=== PATIENT | female | born 1955 | race American Indian/Alaskan Native ===

== ENCOUNTER 2019-02-03 12:50 | Emergency (ER) | payer MEDICAID ==
[2019-02-04 07:46] VITALS: BP 118/65
[2019-02-04] MEDS ORDERED: HALDOL IM ONE (11:25)
[2019-02-04] MEDS ORDERED: HALDOL ONE (11:25)
[2019-02-04] MEDS ORDERED: ATIVAN IM ONE (11:25)
[2019-02-04] MEDS ORDERED: ATIVAN ONE (11:26)
== END 2019-02-04 11:47 ==
LOC: ED 21:24
DX: R41.82 Altered mental status, unspecified (principal); Z53.21 Procedure and treatment not carried out due to patient leaving prior to being seen by health care provider
CPT/HCPCS: 36415; 70450; 80048; 80164; 80178; 80307; 81001; 82550; 84439; 84443; 85025; 93005; 93010; G0480; J1630; J2060; 80320

== ENCOUNTER 2019-02-04 11:25 | Inpatient (IN) | payer MEDICAID ==
[2019-02-04] MEDS ORDERED: TYLENOL PO PRN (13:40)
--- NOTE | 2019-02-04 20:30 | History and Physical Report ---
History of Present Illness Date of admission: 02/04/19 12:20 Chief complaint: Psychosis History of present illness: 63 YO Female with no PMH admitted to [facility] service for psychosis. Pt seen and evaluated upon arrival. Pt resting comfortable in bed. Pt is uncooperative with exam and interview. No reported nursing events. Pt medically stable. No reports of fever, chills, CP, Palpitations, NVD, Productive cough, trauma, or recent known ill contacts. Past History Past Medical History: No medical history, other (uto) Past Surgical History: No surgical history (uto) Social history: no significant social history, other (uto) Family history: no significant family history (uto) Medications and Allergies Allergies Allergy/AdvReac Type Severity Reaction Status Date / Time No Known Allergies Allergy Unverified 02/04/19 19:44 Home Medications Medication Instructions Recorded Confirmed Last Taken Type Unobtainable 02/03/19 02/03/19 Unknown History Active Meds: Active Medications Acetaminophen (Tylenol) 650 mg PO Q6H PRN PRN Reason: Pain, Mild (1-3) Nicotine (Habitrol) 21 mg TD QDAY SRIDEVI Trazodone HCl (Desyrel) 50 mg PO QHS PRN PRN Reason: Insomnia Review of Systems ROS unobtainable: due to mental status Exam - Constitutional Vitals: Temp Pulse Resp BP Pulse Ox 98.4 F 84 16 101/66 99 02/04/19 13:07 02/04/19 13:07 02/04/19 13:07 02/04/19 13:07 02/04/19 13:07 General appearance: Present: no acute distress, well-nourished - EENT Eyes: Present: PERRL ENT: hearing intact, clear oral mucosa - Neck Neck: Present: supple, normal ROM - Respiratory Respiratory effort: normal Respiratory: bilateral: CTA - Cardiovascular Heart Sounds: Present: S1 & S2. Absent: rub, click - Extremities Extremities: pulses symmetrical, No edema Peripheral Pulses: within normal limits - Abdominal General gastrointestinal: Present: soft, non-tender, non-distended, normal bowel sounds Female genitourinary: Present: normal - Integumentary Integumentary: Present: clear, warm, dry - Musculoskeletal Musculoskeletal: gait normal, strength equal bilaterally - Psychiatric Psychiatric: appropriate mood/affect, intact judgment & insight - Neurologic Neurologic: CNII-XII intact, moves all extremities Assessment and Plan - Patient Problems (1) Psychosis Current Visit: Yes Status: Acute Plan to address problem: Treatment as per primary team.
--- NOTE | 2019-02-05 08:11 | History and Physical Report ---
GP History & Physical - History of Present Illness Date of admission: 02/04/19 Date of Examination: 02/05/19 Reason for Admission: Danger to others, Unable to care for self Chief Complaint: someone said I was fighting in my half-way but I didn't do anything History of Present Illness: The patient is a 63yo disabled -Danish female with history of Schizophrenia/Schizoaffective disorder who resides at a snf from where she was transferred to the [facility] Emergency Room with reported history of being physically aggressive towards others at the [facility]. In my interview with the patient, she denies being aggressive but patient is very disorganized, loud, talkative but difficult to understand. History is limited. Patient appears to be developmentally delayed. She endorses being paranoid. She wants to stay in the hospital because she fears that there are people outside that want to hurt and kill her. She denies suicidal or homicidal thoughts. She denies hallucinations. She reports sleeping and eating well. Her home medications include Depakote and Haldol. Patient denies side effects to her medications. Legal Status: Voluntary Patient Problems: Current Active Problems Psychosis (Acute) Schizoaffective disorder, bipolar type (Acute) Reaction to Hospitalization: Accepting Substance History - Substance History Drug Use: none Hx Tobacco Use: Yes Tobacco Type: Cigarettes Alcohol Use: No Past psychiatric history - past Psychiatric treatment and history Psych: Psychosis, Schizophrenia psychiatric treatment history: Unknown - Social History Social history: , smoking, full code, other (disabled, lives in a [facility]) Review of Systems All systems: negative Psychiatric: paranoia Results - Results Labs/Vitals: Last Vital Signs Temp 98.2 F 02/05/19 06:45 Pulse 78 02/05/19 06:45 Resp 18 02/05/19 06:45 BP 137/65 02/05/19 06:45 Pulse Ox 97 02/05/19 06:45 Physical Examination - Constitutional Vitals: Vital Signs Temp Pulse Resp BP Pulse Ox 98.2 F 78 18 137/65 97 02/05/19 06:45 02/05/19 06:45 02/05/19 06:45 02/05/19 06:45 02/05/19 06:45 Temperature -Last 24 Hours Temperature 98.2 F Temperature 98.4 F General appearance: Present: no acute distress, disheveled - EENT ENT: hearing intact - Extremities Extremities: No edema, normal color Mental Status Exam - Vital signs Last Vital Signs Temp 98.2 F 02/05/19 06:45 Pulse 78 02/05/19 06:45 Resp 18 02/05/19 06:45 BP 137/65 02/05/19 06:45 Pulse Ox 97 02/05/19 06:45 - Exam Orientation: place, person Affect: anxious Mood: anxious Thought content: delusions, paranoia Thought Process: Disorganized Perceptions: none Speech: other (loud, rapid and difficult to understand) Concentration: distractible Motor activity: restless Level of consciousness: alert Memory: Intact Sleep Symptoms: None Interaction: cooperative Assessment and Plan - Psychiatric problem (1) Schizoaffective disorder, bipolar type Current Visit: Yes Status: Acute plan to address problem: PLAN: Patient will be admitted for inpatient psychiatric evaluation, medication adjustment and close monitoring The patient's behavior, mood, sleep and appetite will be closely monitored. Patient will be enrolled in therapeutic sessions and encouraged to attend. Patient will be provided with a safe and structured environment. Patient's physical health needs will be addressed by the Hospitalist. Social Assessment will be completed and the Mechanical Design Engineer Facilities will work with patient and family to ensure a suitable and safe disposition Medication adjustment will be made as clinically indicated. Will re-start Home medications. The patient agreed on the treatment plan, understood the risk, benefit, alternative treatment, potential consequence of no treatment, and gave informed consent. Physician Certification - Certification Statement Physician Certification Statement: This is an acknowledgement statement that DAKOTA NOYOLA is a 63 year old F who requires inpatient psychiatric admission for treatment which could reasonably be expected to improve the patient's condition for Schizoaffective disorder Estimated period of time patient will need to remain in the hospital:7 days Plan for post-hospital care: Out-patient treatment.
[2019-02-05] MEDS: HABITROL TD SCH (10:23)
[2019-02-05] MEDS ORDERED: HALDOL ONE (19:52)
[2019-02-05] MEDS ORDERED: COGENTIN ONE (19:52)
[2019-02-05] MEDS ORDERED: HALDOL PO SCH (22:00)
[2019-02-05] MEDS: DepaKENE Liq PO SCH (22:03)
[2019-02-05] MEDS: COGENTIN PO SCH (22:03)
[2019-02-05] MEDS: DESYREL PO PRN (22:04)
[2019-02-06] MEDS ORDERED: HALDOL IM PRN (02:32)
[2019-02-06] MEDS ORDERED: ATIVAN IM PRN (02:33)
--- NOTE | 2019-02-06 07:55 | Progress Note ---
Subjective Date of service: 02/06/19 Principal diagnosis: Schizoaffective disorder, Bipolar type Subjective Comment: The patient did not sleep well last night, she is very agitated, loud and disruptive. She was prescribed PRN medications (Haldol and Lorazepam IM) but she calmed down without requiring the medications, hence they were not give. This morning, she is pacing the floor, banging on doors, loud, agitated and disruptive. She accepted 5mg Haldol and Lorazepam 2mg per oral and she is having her breakfast at present time. Objective - Criteria for Continued Treatment Criteria for Continued Treatment: Improving Level of Functioning, Understanding Diagnosis and need for Medication, Improving Treatment / Medication Compliance, Confronting Denial of Illness, Stablizing Level of Functioning, Improving Emotional/Socia - Mental Status Mental Status: Oriented x 3 - Objective Observation Participation Level: Minimal Assessment and Plan - Patient Problems (1) Schizoaffective disorder, bipolar type Current Visit: Yes Status: Acute Plan to address problem: Continue inpatient psychiatric treatment for medication adjustment and close monitoring The patient's behavior, mood, sleep and appetite will be closely monitored. Patient will be enrolled in individual and group therapeutic sessions and encouraged to attend. Patient will be provided with a safe and structured environment. Patient's physical health needs will be addressed by the Hospitalist. Social Assessment will be completed and the Tool Grinder Operator will work with patient and family to ensure a suitable and safe disposition Medication adjustment will be made as clinically indicated. Will increase Haldol to 5mg bid The patient agreed on the treatment plan, understood the risk, benefit, alternative treatment, potential consequence of no treatment, and gave informed consent.
[2019-02-06] MEDS ORDERED: ATIVAN PO ONE (08:00)
[2019-02-06] MEDS ORDERED: HALDOL PO ONE (08:00)
[2019-02-06] MEDS: HALDOL PO SCH ×2 (09:57→21:16)
[2019-02-06] MEDS: HABITROL TD SCH (10:06)
[2019-02-06] MEDS: DepaKENE Liq PO SCH ×3 (10:06→19:45)
[2019-02-06] MEDS: COGENTIN PO SCH ×2 (10:07→21:17)
[2019-02-06] MEDS: DESYREL PO PRN (21:18)
[2019-02-07] MEDS: DepaKENE Liq PO SCH ×3 (08:19→20:00)
[2019-02-07] MEDS: HABITROL TD SCH (09:52)
[2019-02-07] MEDS: COGENTIN PO SCH ×2 (09:52→21:13)
[2019-02-07] MEDS: HALDOL PO SCH ×2 (09:52→21:13)
--- NOTE | 2019-02-07 10:03 | Progress Note ---
Subjective Date of service: 02/07/19 Principal diagnosis: Schizoaffective disorder, Bipolar type Subjective Comment: The patient continues to be loud, agitated and disruptive. She accepted her medications this morning. No reported or observed medications side effect She is disorganized. Denies SI/HI. Objective - Criteria for Continued Treatment Criteria for Continued Treatment: Improving Level of Functioning, Reducing Isolative Behaviors, Understanding Diagnosis and need for Medication, Improving Treatment / Medication Compliance, Confronting Denial of Illness, Stablizing Level of Functioning, Improving Emotional/Socia - Mental Status Mental Status: Oriented x 3 - Objective Observation Participation Level: Minimal Assessment and Plan - Patient Problems (1) Schizoaffective disorder, bipolar type Current Visit: Yes Status: Acute Plan to address problem: Continue inpatient psychiatric treatment for medication adjustment and close monitoring The patient's behavior, mood, sleep and appetite will be closely monitored. Patient will be enrolled in individual and group therapeutic sessions and encouraged to attend. Patient will be provided with a safe and structured environment. Patient's physical health needs will be addressed by the Hospitalist. Social Assessment will be completed and the Farm Management Professor will work with patient and family to ensure a suitable and safe disposition Medication adjustment will be made as clinically indicated. Will continue current meds The patient agreed on the treatment plan, understood the risk, benefit, alternative treatment, potential consequence of no treatment, and gave informed consent.
[2019-02-07] MEDS ORDERED: HALDOL PO PRN (10:17)
[2019-02-07] MEDS: ATIVAN PO PRN (19:37)
[2019-02-08] MEDS: DepaKENE Liq PO SCH ×3 (08:31→20:04)
[2019-02-08] MEDS: HALDOL PO SCH ×2 (09:16→21:26)
[2019-02-08] MEDS: COGENTIN PO SCH ×2 (09:16→21:26)
[2019-02-08] MEDS: HABITROL TD SCH (09:16)
--- NOTE | 2019-02-08 09:41 | Progress Note ---
Subjective Date of service: 02/08/19 Principal diagnosis: Schizoaffective disorder, Bipolar type Subjective Comment: The patient is hyperactive, loud, agitated and disruptive. She is disorganized and unable to care for self. She is accepted her medications this morning. No reported or observed medications side effect She denies SI/HI Objective - Criteria for Continued Treatment Criteria for Continued Treatment: Improving Level of Functioning, Reducing Isolative Behaviors, Understanding Diagnosis and need for Medication, Improving Treatment / Medication Compliance, Confronting Denial of Illness, Stablizing Level of Functioning, Improving Emotional/Socia - Mental Status Mental Status: Oriented x 3 - Objective Observation Participation Level: Minimal Assessment and Plan - Patient Problems (1) Schizoaffective disorder, bipolar type Current Visit: Yes Status: Acute Plan to address problem: Continue inpatient psychiatric treatment for medication adjustment and close monitoring The patient's behavior, mood, sleep and appetite will be closely monitored. Patient will be enrolled in individual and group therapeutic sessions and encouraged to attend. Patient will be provided with a safe and structured environment. Patient's physical health needs will be addressed by the Hospitalist. Social Assessment will be completed and the Blasting Coal Miner will work with patient and family to ensure a suitable and safe disposition Medication adjustment will be made as clinically indicated. Will continue current meds Check Valproic acid level in am tomorrow and adjust dose The patient agreed on the treatment plan, understood the risk, benefit, alternative treatment, potential consequence of no treatment, and gave informed consent.
[2019-02-08] MEDS: ATIVAN PO PRN (21:26)
[2019-02-09] MEDS: DepaKENE Liq PO SCH (09:20)
[2019-02-09] MEDS: COGENTIN PO SCH ×2 (09:22→21:43)
[2019-02-09] MEDS: HALDOL PO SCH ×3 (09:22→21:43)
[2019-02-09] MEDS: HABITROL TD SCH (09:23)
--- NOTE | 2019-02-09 10:07 | Progress Note ---
Subjective Date of service: 02/09/19 Principal diagnosis: Schizoaffective disorder, Bipolar type Subjective Comment: No significant change. She continues to be hyperactive, loud, agitated and disruptive. She is disorganized and unable to care for self. She accepted her medications this morning. No reported or observed medications side effect. She denies SI/HI. Serum Valproic Acid level 64.9 this morning. Objective - Criteria for Continued Treatment Criteria for Continued Treatment: Improving Level of Functioning, Reducing Isolative Behaviors, Understanding Diagnosis and need for Medication, Improving Treatment / Medication Compliance, Confronting Denial of Illness, Stablizing Level of Functioning, Improving Emotional/Socia - Mental Status Mental Status: Oriented x 3 - Objective Observation Participation Level: Minimal Assessment and Plan - Patient Problems (1) Schizoaffective disorder, bipolar type Current Visit: Yes Status: Acute Plan to address problem: Continue inpatient psychiatric treatment for medication adjustment and close monitoring The patient's behavior, mood, sleep and appetite will be closely monitored. Patient will be enrolled in individual and group therapeutic sessions and encour aged to attend. Patient will be provided with a safe and structured environment. Patient's physical health needs will be addressed by the Hospitalist. Social Assessment will be completed and the Oracle Manufacturing Consultant will work with patient and family to ensure a suitable and safe disposition Medication adjustment will be made as clinically indicated. Will increase Haldol to 7.5mg bid Add Clonazepam 0.5mg bid for calvin Change Depakote to ER and increase to 1000mg bid. Check Serum Valproic Acid level next The patient agreed on the treatment plan, understood the risk, benefit, alternative treatment, potential consequence of no treatment, and gave informed consent.
[2019-02-09] MEDS ORDERED: HALDOL PO ONE (14:00)
[2019-02-09] MEDS: DESYREL PO PRN (23:16)
--- NOTE | 2019-02-10 08:25 | Progress Note ---
Subjective Date of service: 02/10/19 Principal diagnosis: Schizoaffective disorder, Bipolar type Subjective Comment: Patient continues to be hyperactive, loud, agitated and disruptive. She is disorganized and unable to care for self. She accepted her medications this morning. No reported or observed medications side effect. She denies SI/HI. Objective - Mental Status Mental Status: Oriented x 3 - Objective Observation Participation Level: Minimal Assessment and Plan - Patient Problems (1) Schizoaffective disorder, bipolar type Current Visit: Yes Status: Acute Plan to address problem: Continue inpatient psychiatric treatment for medication adjustment and close monitoring The patient's behavior, mood, sleep and appetite will be closely monitored. Patient will be enrolled in individual and group therapeutic sessions and encouraged to attend. Patient will be provided with a safe and structured environment. Patient's physical health needs will be addressed by the Hospitalist. Social Assessment will be completed and the Business Intelligence Etl Developer will work with patient and family to ensure a suitable and safe disposition Medication adjustment will be made as clinically indicated. Check Serum Valproic Acid level next The patient agreed on the treatment plan, understood the risk, benefit, alternative treatment, potential consequence of no treatment, and gave informed consent.
[2019-02-10] MEDS: HALDOL PO SCH ×2 (09:20→22:33)
[2019-02-10] MEDS: HABITROL TD SCH (09:24)
[2019-02-10] MEDS: COGENTIN PO SCH ×2 (09:33→22:34)
[2019-02-11] MEDS: HALDOL PO SCH ×2 (09:17→21:25)
[2019-02-11] MEDS: HABITROL TD SCH (09:19)
[2019-02-11] MEDS: COGENTIN PO SCH ×2 (09:19→21:23)
--- NOTE | 2019-02-11 11:31 | Progress Note ---
Subjective Principal diagnosis: Schizoaffective disorder, Bipolar type Subjective Comment: Patient was over-sedated yesterday, Clonazepan was discontinued and Quetiapine was decreased. She is loud, agitated and disruptive this morning. She is disorganized and unable to care for self. No reported or observed medications side effect. She denies SI/HI. Objective - Criteria for Continued Treatment Criteria for Continued Treatment: Improving Level of Functioning, Reducing Isolative Behaviors, Understanding Diagnosis and need for Medication, Improving Treatment / Medication Compliance, Confronting Denial of Illness, Stablizing Level of Functioning, Improving Emotional/Socia - Mental Status Mental Status: Alert - Objective Observation Participation Level: Minimal Assessment and Plan - Patient Problems (1) Schizoaffective disorder, bipolar type Current Visit: Yes Status: Acute Plan to address problem: Continue inpatient psychiatric treatment for medication adjustment and close monitoring The patient's behavior, mood, sleep and appetite will be closely monitored. Patient will be enrolled in individual and group therapeutic sessions and encouraged to attend. Patient will be provided with a safe and structured environment. Patient's physical health needs will be addressed by the Hospitalist. Social Assessment will be completed and the Acid Tank Cleaner will work with patient and family to ensure a suitable and safe disposition Medication adjustment will be made as clinically indicated. Check Serum Valproic Acid level next The patient agreed on the treatment plan, understood the risk, benefit, alternative treatment, potential consequence of no treatment, and gave informed consent.
[2019-02-11] MEDS: ATIVAN PO PRN (21:23)
[2019-02-12] MEDS: HALDOL PO SCH ×2 (09:07→21:14)
[2019-02-12] MEDS: HABITROL TD SCH (09:08)
[2019-02-12] MEDS: COGENTIN PO SCH ×2 (09:08→21:14)
--- NOTE | 2019-02-12 10:08 | Progress Note ---
Subjective Date of service: 02/12/19 Principal diagnosis: Schizoaffective disorder, Bipolar type Subjective Comment: Patient is improving. She is calm and more cooperative with cares. She is compliant with her medications and denies side effects. She is pushing to go home. The Traffic Routing Engineer is working with her and she would be referred to the [facility]. No SI/HI Objective - Criteria for Continued Treatment Criteria for Continued Treatment: Improving Level of Functioning - Mental Status Mental Status: Oriented x 3 - Objective Observation Participation Level: Moderate Assessment and Plan - Patient Problems (1) Schizoaffective disorder, bipolar type Current Visit: Yes Status: Acute Plan to address problem: Continue inpatient psychiatric treatment for medication adjustment and close monitoring The patient's behavior, mood, sleep and appetite will be closely monitored. Patient will be enrolled in individual and group therapeutic sessions and encouraged to attend. Patient will be provided with a safe and structured environment. Patient's physical health needs will be addressed by the Hospitalist. Social Assessment will be completed and the Traffic Routing Engineer will work with patient and family to ensure a suitable and safe disposition Medication adjustment will be made as clinically indicated. Check Serum Valproic Acid level tomorrow am The patient agreed on the treatment plan, understood the risk, benefit, alternative treatment, potential consequence of no treatment, and gave informed consent.
[2019-02-12] MEDS: ATIVAN PO PRN ×2 (14:28→21:13)
[2019-02-13 08:50] VITALS: BP 124/62
[2019-02-13] MEDS: HALDOL PO SCH (09:17)
[2019-02-13] MEDS: COGENTIN PO SCH (09:17)
[2019-02-13] MEDS: HABITROL TD SCH (09:20)
--- NOTE | 2019-02-13 12:12 | Discharge Summary ---
Providers - Providers Date of Admission: 02/04/19 12:20 Date of discharge: 02/13/19 Attending physician: VIDHI BRINK MD [facility] Reason for admission: Danger unto others, disorganized, psychotic and unable to care for self Condition: Good Hospital course: The patient was provided inpatient psychiatric treatment with safe and supportive environment, group therapy, individual counseling, psychiatric medication, medication adjustment, adverse effect monitor, medical evaluation, medical treatment, social service assessment, family/social support meeting, placement assessment and psycho-education. The patients mood, anxiety, thoughts, stress management skill, cognition, impulse/anger control, motivation, understanding of disease, compliance to treatment and appreciation on family/social support are improved and stabilized. At the time of discharge, the patient had no suicidal ideas, no homicidal ideas, no aggressive thoughts, no endangering behavior and no debilitating adverse effects. The patient agreed on the treatment plan, understood the risk, benefit, alternative treatment, potential consequence of no treatment, and gave informed consent. The patient was advised to be compliant with medications, not to use drugs and not to drink alcohol. The patient understands that if suicidal ideas, homicidal ideas, or any endangering thoughts arise, the patient should immediately seek for emergent assistance including but not limited to crisis hot line and emergency room. Follow up with out-patient Psychiatrist and PCP within 14 - 21 days of discharge Disposition: DC-01 TO HOME OR SELFCARE Time spent for discharge: 36 minutes Allergies/Adverse Reactions: Allergies No Known Allergies Allergy (Unverified 02/04/19 19:44) Vital Signs: Last Vital Signs Temp 97.9 F 02/13/19 07:35 Pulse 59 L 02/13/19 07:35 Resp 18 02/13/19 07:35 BP 124/62 02/13/19 07:35 Pulse Ox 99 02/13/19 07:35 Last Lab: Laboratory Last Values POC Glucose 73 (70-105) 02/13/19 07:20 Valproic Acid 92.2 ug/mL (50-100) 02/13/19 07:39 - Discharge Diagnoses (1) Schizoaffective disorder, bipolar type Status: Acute Core Measure Documentation - Palliative Care Palliative Care/ Comfort Measures: Not Applicable - Core Measures Any of the following diagnoses?: none - VTE Discharge Requirements Deep Vein Thrombosis/Pulmonary Embolism Present on Admission: No Has pt received <5 days of overlap therapy or INR<2.0: No Anticoagulant overlap therapy prescribed at discharge: No Contraindication No Overlap Therapy order at DC: Not Indicated - Acute [place] Discharge Requirements Aspirin at discharge: No Reason for no aspirin on DC: Medical contraindication - Heart Failure Discharge Requirements ROBERT/ARB for LVSD if EF <40%: Not Applicable Beta sharon at discharge: No Reason for no beta sharon on DC: Medical contraindication - Stroke Discharge Requirements Statin for LDL = or >70 mg/dl on DC: Not Applicable Anticoag for atrial fib/atrial flutter: Not Applicable Reason for no anticoag for AF/F on DC: Not Indicated Reason for no antithrombotic on DC: Not Indicated Exam - Constitutional Vitals: Temp Pulse Resp BP Pulse Ox 97.9 F 59 L 18 124/62 99 02/13/19 07:35 02/13/19 07:35 02/13/19 07:35 02/13/19 07:35 02/13/19 07:35 General appearance: Present: no acute distress - EENT ENT: hearing intact - Neck Neck: Present: supple, normal ROM - Respiratory Respiratory effort: normal - Integumentary Integumentary: Present: clear, warm, dry - Psychiatric Psychiatric: appropriate mood/affect, intact judgment & insight, memory intact, cooperative Plan Activity: advance as tolerated Diet: regular [facility] Care Provider[facility] - 7 Days Prescriptions: QUEtiapine [SEROquel] 50 mg PO QHS #30 tablet Benztropine [Cogentin] 0.5 mg PO BID #60 tablet Divalproex ER [Depakote ER] 1,000 mg PO BID #120 tablet Nicotine [Habitrol] 21 mg TD QDAY #30 patch Haloperidol [Haldol] 7.5 mg PO BID #90 tablet
== END 2019-02-13 14:30 | disposition home or self-care (01) | DRG 885 ==
LOC: UNDOADMIN 11:25 → 3A 11:25 → 5A 12:20
PROVIDERS: ADMIT Psychiatry & Neurology Psychiatry; ATTEND Psychiatry & Neurology Psychiatry
DX: F25.0 Schizoaffective disorder, bipolar type (principal); F17.210 Nicotine dependence, cigarettes, uncomplicated; F41.9 Anxiety disorder, unspecified
CPT/HCPCS: 36415; 70450; 80048; 80164; 80178; 80307; 80320; 81001; 82550; 82962; 84439; 84443; 85025; 93005; 93010; G0378; G0480; J1630; J2060

== ENCOUNTER 2019-02-17 12:19 | Emergency (ER) | payer MEDICAID ==
[2019-02-17] MEDS ORDERED: BENADRYL IM PRN (13:10)
[2019-02-17] MEDS ORDERED: HALDOL IM PRN (13:10)
--- NOTE | 2019-02-17 13:13 | Emergency Department Report ---
HPI - General Chief Complaint: Psych Time Seen by Provider: 02/17/19 13:03 - HPI HPI: Room 11 The patient is 63-year-old female presenting with a chief complaint of wandering and auditory hallucinations. The patient has a history of schizoaffective diso rder bipolar type was found by EMS wandering outside of a gas station talking to herself. The patient admitted to auditory hallucinations and "wanted to harm family because taking checked." The patient is agitated during my interview does not provide further information stating that she is being asked the same questions over and over again. Patient denies suicidal ideation Location: Mental state Duration: [See above] Quality: [See above] Severity: [See above] Modifying factors: [see above] Context: [see above] Mode of transportation: [not driving] ED Past Medical Hx - Past Medical History Previous Medical History?: Yes Hx Congestive Heart Failure: (pt not able to provide information) Hx Diabetes: (pt not able to provide information) Hx Renal Disease: (Unable to access) Hx Arthritis: (Unable to access) Hx Seizures: (Unable to access) Hx Psychiatric Treatment: Yes (schizoaffective disorder bipolar type) Hx Asthma: (pt not able to provide information) Hx COPD: (pt not able to provide information) Hx Dementia: (Unable to access) - Surgical History Past Surgical History?: Yes Hx Cholecystectomy: (Unable to access) Hx Appendectomy: (Unable to access) Additional Surgical History: tubal ligation - Family History Family history: no significant - Social History Smoking Status: Current Every Day Smoker Substance Use Type: None - Medications Home Medications: Home Medications Medication Instructions Recorded Confirmed Last Taken Type Benztropine [Cogentin] 0.5 mg PO BID #60 tablet 02/13/19 Unknown Rx Divalproex ER [Depakote ER] 1,000 mg PO BID #120 tablet 02/13/19 Unknown Rx Haloperidol [Haldol] 7.5 mg PO BID #90 tablet 02/13/19 Unknown Rx Nicotine [Habitrol] 21 mg TD QDAY #30 patch 02/13/19 Unknown Rx QUEtiapine [SEROquel] 50 mg PO QHS #30 tablet 02/13/19 Unknown Rx ED Review of Systems ROS: Stated complaint: PSYCH Other details as noted in HPI Comment: Unobtainable due to pts medical conditions Physical Exam - Physical Exam Vital Signs: Vital Signs 02/17/19 12:19 Temperature 98.7 F Pulse Rate 111 H Respiratory 22 Rate Blood Pressure 154/104 O2 Sat by Pulse 96 Oximetry Physical Exam: GENERAL: The patient is well-developed well-nourished female sitting on stretch er eating food appearing agitated. [] HEENT: Normocephalic. Atraumatic. Extraocular motions are intact. Patient has moist mucous membranes. NECK: Supple. Trachea midline CHEST/LUNGS: Clear to auscultation. There is no respiratory distress noted. HEART/CARDIOVASCULAR: Regular. There is no tachycardia. There is no gallop rub or murmur. ABDOMEN: Abdomen is soft, nontender. Patient has normal bowel sounds. There is no abdominal distention. SKIN: There is no rash. There is no edema. There is no diaphoresis. NEURO: The patient is awake, alert, and agitated. The patient is not cooperative. The patient has normal speech MUSCULOSKELETAL: There is no evidence of acute injury. ED Course Vital Signs 02/17/19 12:19 Temperature 98.7 F Pulse Rate 111 H Respiratory 22 Rate Blood Pressure 154/104 O2 Sat by Pulse 96 Oximetry ED Medical Decision Making - Lab Data Result diagrams: 02/17/19 13:13 02/17/19 13:13 Laboratory Tests 02/17/19 02/17/19 02/17/19 13:13 13:13 13:13 WBC 6.3 RBC 3.74 Hgb 12.7 Hct 36.6 MCV 98 H MCH 34 H MCHC 35 H RDW 14.3 Plt Count 203 Lymph % (Auto) 19.8 [place] % (Auto) 10.5 H Eos % (Auto) 0.1 Baso % (Auto) 0.8 Lymph # 1.2 [place] # 0.7 Eos # 0.0 Baso # 0.0 Seg Neutrophils % 68.8 Seg Neutrophils # 4.3 Sodium 143 Potassium 4.2 Chloride 106.4 Carbon Dioxide 21 L Anion Gap 20 BUN 28 H Creatinine 1.3 H Estimated GFR 50 BUN/Creatinine Ratio 22 Glucose 116 H Calcium 9.0 Urine Color Urine Turbidity Urine pH Ur Specific [place] Urine Protein Urine Glucose (UA) Urine Ketones Urine Blood Urine Nitrite Urine Bilirubin Urine Urobilinogen Ur Leukocyte Esterase Urine WBC (Auto) Urine RBC (Auto) U Epithel Cells (Auto) Urine Bacteria (Auto) Calcium Oxalate Crystal Urine Mucus Urine Yeast (Budding) Salicylates < 0.3 L Urine Opiates Screen Urine Methadone Screen Acetaminophen Ur Barbiturates Screen Valproic Acid < 2.8 L Ur Phencyclidine Scrn Ur Amphetamines Screen U Benzodiazepines Scrn Urine Cocaine Screen U Marijuana (THC) Screen Plasma/Serum Alcohol 02/17/19 02/17/19 02/17/19 13:13 13:13 Unknown WBC RBC Hgb Hct MCV MCH MCHC RDW Plt Count Lymph % (Auto) [place] % (Auto) Eos % (Auto) Baso % (Auto) Lymph # [place] # Eos # Baso # Seg Neutrophils % Seg Neutrophils # Sodium Potassium Chloride Carbon Dioxide Anion Gap BUN Creatinine Estimated GFR BUN/Creatinine Ratio Glucose Calcium Urine Color Francoise Urine Turbidity Slightly-cloudy Urine pH 5.0 Ur Specific [place] 1.032 H Urine Protein <15 mg/dl Urine Glucose (UA) Neg Urine Ketones Tr Urine Blood Neg Urine Nitrite Neg Urine Bilirubin Neg Urine Urobilinogen 4.0 Ur Leukocyte Esterase Sm Urine WBC (Auto) 4.0 Urine RBC (Auto) 10.0 U Epithel Cells (Auto) < 1.0 Urine Bacteria (Auto) 1+ Calcium Oxalate Crystal Few Urine Mucus Few Urine Yeast (Budding) Few Salicylates Urine Opiates Screen Urine Methadone Screen Acetaminophen < 5.0 L Ur Barbiturates Screen Valproic Acid Ur Phencyclidine Scrn Ur Amphetamines Screen U Benzodiazepines Scrn Urine Cocaine Screen U Marijuana (THC) Screen Plasma/Serum Alcohol < 0.01 02/17/19 Unknown WBC RBC Hgb Hct MCV MCH MCHC RDW Plt Count Lymph % (Auto) [place] % (Auto) Eos % (Auto) Baso % (Auto) Lymph # [place] # Eos # Baso # Seg Neutrophils % Seg Neutrophils # Sodium Potassium Chloride Carbon Dioxide Anion Gap BUN Creatinine Estimated GFR BUN/Creatinine Ratio Glucose Calcium Urine Color Urine Turbidity Urine pH Ur Specific [place] Urine Protein Urine Glucose (UA) Urine Ketones Urine Blood Urine Nitrite Urine Bilirubin Urine Urobilinogen Ur Leukocyte Esterase Urine WBC (Auto) Urine RBC (Auto) U Epithel Cells (Auto) Urine Bacteria (Auto) Calcium Oxalate Crystal Urine Mucus Urine Yeast (Budding) Salicylates Urine Opiates Screen Presumptive negative Urine Methadone Screen Presumptive negative Acetaminophen Ur Barbiturates Screen Presumptive negative Valproic Acid Ur Phencyclidine Scrn Presumptive negative Ur Amphetamines Screen Presumptive negative U Benzodiazepines Scrn Presumptive negative Urine Cocaine Screen Presumptive negative U Marijuana (THC) Screen Presumptive negative Plasma/Serum Alcohol - Differential Diagnosis schizoaffective disorder Critical care attestation.: If time is entered above; I have spent that time in minutes in the direct care of this critically ill patient, excluding procedure time. ED Disposition Clinical Impression: Schizoaffective disorder, bipolar type, Homicidal ideation Disposition: DC/TX-65 PSY HOSP/PSY UNIT Is pt being admited?: No Does the pt Need Aspirin: No Condition: Serious Time of Disposition: 13:22 (awaiting acceptance)
[2019-02-17 13:33] LABS: Basophils % (Auto) 0.8 % (0.0-1.8); Eosinophils % (Auto) 0.1 % (0.0-4.3); Hematocrit 36.6 % (30.3-42.9); Hemoglobin 12.7 gm/dl (10.1-14.3); Lymphocytes # (Auto) 1.2 K/mm3 (1.2-5.4); Lymphocytes % (Auto) 19.8 % (13.4-35.0); Mean Corpuscular HGB Conc 35 % (30-34); Mean Corpuscular Volume 98 fl (79-97); Monocytes # (Auto) 0.7 K/mm3 (0.0-0.8); Monocytes % (Auto) 10.5 % (0.0-7.3); Platelet Count 203 K/mm3 (140-440); Red Blood Count 3.74 M/mm3 (3.65-5.03); Red Cell Distribution Width 14.3 % (13.2-15.2)
[2019-02-17 13:48] LABS: Bacteria,Urine 1+ /HPF (Negative); Bilirubin,Urine NEG (Negative); Blood,Urine NEG (Negative); Calcium Oxalate Crystals,Urine FEW; Color,Urine Amber (Yellow); Mucus,Urine FEW /HPF; Protein,Urine <15 mg/dL mg/dL (Negative)
[2019-02-17 13:58] LABS: Amphetamine Screen,Urine PRESUMPTIVE NEGATIVE; Benzodiazepines Screen,Urine PRESUMPTIVE NEGATIVE; Cannabinoid Screen,Urine PRESUMPTIVE NEGATIVE; Cocaine Screen,Urine PRESUMPTIVE NEGATIVE; Methadone Screen,Urine PRESUMPTIVE NEGATIVE; Opiate Screen,Urine PRESUMPTIVE NEGATIVE
[2019-02-17] MEDS ORDERED: ATIVAN IM ONE (18:15)
[2019-02-17] MEDS ORDERED: ATIVAN IM PRN (18:26)
[2019-02-18 08:25] VITALS: BP 120/69
== END 2019-02-18 09:00 ==
LOC: ED 12:19
DX: F31.9 Bipolar disorder, unspecified (principal); F20.9 Schizophrenia, unspecified; Z98.51 Tubal ligation status; F17.200 Nicotine dependence, unspecified, uncomplicated
CPT/HCPCS: 36415; 80048; 80164; 80307; 81001; 85025; 96372; 99285; G0480; J1200; J1630; J2060; 80320

== ENCOUNTER 2019-03-11 20:21 | Emergency (ER) | payer MEDICAID ==
--- NOTE | 2019-03-11 21:43 | Emergency Department Report ---
ED Psych HPI - General Chief Complaint: Psych Stated Complaint: MH EVAL Time Seen by Provider: 03/11/19 21:32 Source: EMS Mode of arrival: Stretcher - History of Present Illness Initial Comments: Patient is 63 years old female with history of schizoaffective disorder. Patient brought to the emergency room via EMS and PD after patient was found wandering around in the street with a bizarre behavior. Patient was very agitated and she received Versed by EMS. In the emergency room patient to be to be agitated and screaming with obvious visual on auditory hallucination. Ashley ent in acute psychosis. Patient is not answering questions. Patient required chemical restraint. Patient given Geodon 20 mg IM. MD Complaint: altered mental status Associated Psychiatric Symptoms: racing thoughts, auditory hallucinations - Related Data Previous Rx's Medication Instructions Recorded Last Taken Type Benztropine [Cogentin] 0.5 mg PO BID #60 tablet 02/13/19 Unknown Rx Divalproex ER [Depakote ER] 1,000 mg PO BID #120 tablet 02/13/19 Unknown Rx Haloperidol [Haldol] 7.5 mg PO BID #90 tablet 02/13/19 Unknown Rx Nicotine [Habitrol] 21 mg TD QDAY #30 patch 02/13/19 Unknown Rx QUEtiapine [SEROquel] 50 mg PO QHS #30 tablet 02/13/19 Unknown Rx Allergies Allergy/AdvReac Type Severity Reaction Status Date / Time No Known Allergies Allergy Verified 02/17/19 12:35 ED Review of Systems ROS: Stated complaint: MH EVAL Other details as noted in HPI Comment: All other systems reviewed and negative Constitutional: denies: chills, fever Respiratory: denies: cough, orthopnea Gastrointestinal: denies: abdominal pain ED Past Medical Hx - Past Medical History Hx Congestive Heart Failure: (pt not able to provide information) Hx Diabetes: (pt not able to provide information) Hx Renal Disease: (Unable to access) Hx Arthritis: (Unable to access) Hx Seizures: (Unable to access) Hx Psychiatric Treatment: Yes (schizoaffective disorder bipolar type) Hx Asthma: (pt not able to provide information) Hx COPD: (pt not able to provide information) Hx Dementia: (Unable to access) - Surgical History Past Surgical History?: Yes Hx Cholecystectomy: (Unable to access) Hx Appendectomy: (Unable to access) Additional Surgical History: tubal ligation - Social History Smoking Status: Unknown if ever smoked Substance Use Type: None - Medications Home Medications: Home Medications Medication Instructions Recorded Confirmed Last Taken Type Benztropine [Cogentin] 0.5 mg PO BID #60 tablet 02/13/19 Unknown Rx Divalproex ER [Depakote ER] 1,000 mg PO BID #120 tablet 02/13/19 Unknown Rx Haloperidol [Haldol] 7.5 mg PO BID #90 tablet 02/13/19 Unknown Rx Nicotine [Habitrol] 21 mg TD QDAY #30 patch 02/13/19 Unknown Rx QUEtiapine [SEROquel] 50 mg PO QHS #30 tablet 02/13/19 Unknown Rx ED Physical Exam - General Limitations: Altered Mental Status General appearance: alert, in no apparent distress, other (AGITATED) - Head Head exam: Present: atraumatic, normocephalic, normal inspection - ENT ENT exam: Present: normal exam, normal orophraynx, mucous membranes moist - Neck Neck exam: Present: normal inspection, full ROM. Absent: tenderness, meningismus, lymphadenopathy, thyromegaly - Respiratory Respiratory exam: Present: normal lung sounds bilaterally - Cardiovascular Cardiovascular Exam: Present: regular rate, normal rhythm, normal heart sounds - GI/Abdominal GI/Abdominal exam: Present: soft, normal bowel sounds. Absent: distended, tenderness, guarding, rebound, rigid - Extremities Exam Extremities exam: Present: normal inspection, full ROM, normal capillary refill - Back Exam Back exam: Present: normal inspection, full ROM. Absent: tenderness, CVA tenderness (R), CVA tenderness (L) - Neurological Exam Neurological exam: Present: alert, altered, CN II-XII intact, normal gait - Psychiatric Psychiatric exam: Present: agitated, anxious. Absent: flat affect, manic, homicidal ideation, suicidal ideation - Skin Skin exam: Present: warm, intact, normal color ED Course Vital Signs 03/11/19 20:34 Temperature 98.3 F Pulse Rate 97 H Respiratory 18 Rate Blood Pressure 142/67 Blood Pressure 142/67 [Right] O2 Sat by Pulse 95 Oximetry Critical care attestation.: If time is entered above; I have spent that time in minutes in the direct care of this critically ill patient, excluding procedure time. ED Disposition Clinical Impression: Psychosis, Schizoaffective disorder, bipolar type Disposition: DC/TX-65 PSY HOSP/PSY UNIT Is pt being admited?: No Condition: Stable Referrals: PRIMARY CARE, [Primary Care Provider] - 3-5 Days
[2019-03-11] MEDS ORDERED: GEODON IM ONE ×2 (21:44→21:51)
[2019-03-11] MEDS ORDERED: WATER FOR INJ Sterile (PF) 10 ML ONE (21:44)
[2019-03-11 22:15] LABS: Basophils # (Auto) 0.1 K/mm3 (0.0-0.1); Basophils % (Auto) 0.7 % (0.0-1.8); Eosinophils % (Auto) 0.1 % (0.0-4.3); Hematocrit 32.3 % (30.3-42.9); Hemoglobin 11.3 gm/dl (10.1-14.3); Lymphocytes # (Auto) 1.7 K/mm3 (1.2-5.4); Lymphocytes % (Auto) 22.1 % (13.4-35.0); Mean Corpuscular HGB Conc 35 % (30-34); Mean Corpuscular Volume 100 fl (79-97); Monocytes # (Auto) 0.7 K/mm3 (0.0-0.8); Monocytes % (Auto) 9.5 % (0.0-7.3); Platelet Count 192 K/mm3 (140-440); Red Blood Count 3.24 M/mm3 (3.65-5.03); Red Cell Distribution Width 15.3 % (13.2-15.2)
[2019-03-11 22:56] LABS: BUN/Creatinine Ratio 14; Blood Urea Nitrogen 13 mg/dL (7-17); Calcium 9.1 mg/dL (8.4-10.2); Hemolysis Index 165
[2019-03-12] MEDS: GEODON IM PRN (08:49)
--- NOTE | 2019-03-12 16:12 | Consultation ---
History of Present Illness - Reason for Consult Consult date: 03/12/19 Reason for consult: Mental Health Evaluation Requesting physician: PROMISE ELLINGTON - Chief Complaint Chief complaint: "The patient is yelling" - History of Present Psychiatric Illness 63 y.o. AA female who presented to the ER for bizarre behavior. Today the patient was agitated during the assessment. I the provider attempted to calm de escalate the situation, but was unsuccessful. The psy assessment was not completed. No gestures of SI/HI's. Medications and Allergies Allergies Allergy/AdvReac Type Severity Reaction Status Date / Time No Known Allergies Allergy Verified 02/17/19 12:35 Home Medications Medication Instructions Recorded Confirmed Last Taken Type Benztropine [Cogentin] 0.5 mg PO BID #60 tablet 02/13/19 03/12/19 Unknown Rx Divalproex ER [Depakote ER] 1,000 mg PO BID #120 tablet 02/13/19 03/12/19 Unknown Rx Haloperidol [Haldol] 7.5 mg PO BID #90 tablet 02/13/19 03/12/19 Unknown Rx Nicotine [Habitrol] 21 mg TD QDAY #30 patch 02/13/19 03/12/19 Unknown Rx QUEtiapine [SEROquel] 50 mg PO QHS #30 tablet 02/13/19 03/12/19 Unknown Rx Active Meds: Active Medications Ziprasidone (Geodon) 10 mg IM Q2H PRN PRN Reason: Agitation Last Admin: 03/12/19 08:49 Dose: 10 mg Documented by: Past psychiatric history - Past Medical History Past Medical History: other (Unable to obtain ) Past Surgical History: Other (Unable to obtain ) - past Psychiatric treatment and history psychiatric treatment history: Several inpatient psy settings. Unable to obtain a [facility] psy hx. - Social History Social history: other (Unable to obtain) Mental Status Exam - Vital signs Last Vital Signs Temp 98.0 F 03/12/19 14:12 Pulse 53 L 03/12/19 14:12 Resp 18 03/12/19 14:12 BP 187/88 03/12/19 14:12 Pulse Ox 98 03/12/19 14:12 - Exam Narrative exam: Unable to complete the MSE because of the patient's condition. Results Result Diagrams: 03/11/19 21:57 03/11/19 21:57 Abnormal lab results 03/11/19 03/11/19 03/11/19 Range/Units 21:57 21:57 21:57 RBC 3.24 L (3.65-5.03) M/mm3 MCV 100 H (79-97) fl MCH 35 H (28-32) pg MCHC 35 H (30-34) % RDW 15.3 H (13.2-15.2) % [place] % (Auto) 9.5 H (0.0-7.3) % Sodium 146 H (137-145) mmol/L Chloride 109.2 H (98-107) mmol/L Salicylates < 0.3 L (2.8-20.0) mg/dL Acetaminophen (10.0-30.0) ug/mL Valproic Acid < 2.8 L (50-100) ug/mL 03/11/19 Range/Units 21:57 RBC (3.65-5.03) M/mm3 MCV (79-97) fl MCH (28-32) pg MCHC (30-34) % RDW (13.2-15.2) % [place] % (Auto) (0.0-7.3) % Sodium (137-145) mmol/L Chloride (98-107) mmol/L Salicylates (2.8-20.0) mg/dL Acetaminophen < 5.0 L (10.0-30.0) ug/mL Valproic Acid (50-100) ug/mL All other labs normal. Assessment and Plan Assessment and plan: Impression: Today the patient is agitated during the assessment. Recommendation/Plan: Continue 1013 and reassess the patient in 24 hours. UDS/UA is pending. Will staff with Dr Jerilyn Boudreaux.
[2019-03-12 20:43] LABS: Bilirubin,Urine NEG (Negative); Blood,Urine NEG (Negative); Color,Urine Amber (Yellow); Mucus,Urine 3+ /HPF
[2019-03-12 20:48] LABS: Amphetamine Screen,Urine PRESUMPTIVE NEGATIVE; Cannabinoid Screen,Urine PRESUMPTIVE NEGATIVE; Cocaine Screen,Urine PRESUMPTIVE NEGATIVE; Methadone Screen,Urine PRESUMPTIVE NEGATIVE; Opiate Screen,Urine PRESUMPTIVE NEGATIVE
[2019-03-12 21:23] LABS: Benzodiazepines Screen,Urine PRESUMPTIVE POSITIVE
[2019-03-13 02:51] VITALS: BP 151/63
[2019-03-13] MEDS: GEODON IM PRN (09:13)
== END 2019-03-13 09:14 ==
LOC: EEVIPCON 20:21 → ED 20:21
DX: F23 Brief psychotic disorder (principal); F31.9 Bipolar disorder, unspecified; Z98.51 Tubal ligation status
CPT/HCPCS: 36415; 80048; 80164; 80307; 81001; 85025; 96372; 99285; G0480; J3486; 80320

== ENCOUNTER 2019-04-13 03:37 | Emergency (ER) | payer MEDICAID | END 2019-04-13 04:20 | disposition left against medical advice (07) | LOC: ED 03:37 | DX: F31.9 Bipolar disorder, unspecified (principal); Z53.21 Procedure and treatment not carried out due to patient leaving prior to being seen by health care provider ==